=== PATIENT | female | born 1990 | race American Indian/Alaskan Native ===

== ENCOUNTER 2018-12-18 15:10 | Emergency (ER) | payer OTHER ==
[2018-12-18 14:08] LABS: Hematocrit 34.4 % (30.3-42.9); Hemoglobin 11.6 gm/dl (10.1-14.3); Mean Corpuscular HGB Conc 34 % (30-34); Mean Corpuscular Volume 86 fl (79-97); Platelet Count 388 K/mm3 (140-440)
[2018-12-18 14:08] LABS: Bilirubin,Urine NEG (Negative); Blood,Urine NEG (Negative); Color,Urine Straw (Yellow); Mucus,Urine FEW /HPF; Protein,Urine <15 mg/dL mg/dL (Negative); RBC,Urine < 1.0 /HPF (0.0-6.0); Urobilinogen,Urine < 2.0 mg/dL (<2.0)
[2018-12-18 14:27] LABS: Alanine Aminotransferase 13 units/L (7-56); Uric Acid 5.1 mg/dL (3.5-7.6)
[2018-12-18 16:55] LABS: INR 0.86 (0.87-1.13)
[2018-12-18 16:56] LABS: Partial Thromboplastin Time 25.6 Sec. (24.2-36.6)
[2018-12-18 17:06] LABS: Alanine Aminotransferase 13 units/L (7-56); Albumin 3.3 g/dL (3.9-5)
[2018-12-18 17:07] LABS: Bilirubin,Direct < 0.2 mg/dL (0-0.2)
--- NOTE | 2018-12-18 17:08 | Emergency Department Report ---
<KATHERINE HUBER - Last Filed: 12/18/18 19:40> ED General Adult HPI - General Chief complaint: Dyspnea/Respdistress Time Seen by Provider: 12/18/18 17:06 Source: patient Mode of arrival: Ambulatory Limitations: No Limitations - History of Present Illness Initial comments: 28-year-old female 30 weeks who states that she has had no problems with this thus far. She has already been to L&D and cleared from the obstetrical point of view. She is referred to the emergency department for evaluation of episodes of shortness of breath. The patient explains that she has had perhaps 3 episodes of shortness of breath one earlier today which was of one minute duration. She states that she had a first episode on Saturday. These episodes are nonexertional and not associated with cough or chest pain. The patient tells me she thinks that the reason why she is having these episodes is because she is "so heavy" from her . She was at work today. She works at "[employer] She does not do heavy exertion. He does not report any leg swelling or calf tenderness. She has no prior history of PE or DVT. She doesn't report any history of hypertension in or otherwise. -: Gradual Associated Symptoms: denies other symptoms - Related Data Previous Rx's Medication Instructions Recorded Last Taken Type Acetaminophen/Codeine [Tylenol #3] 1 tab PO Q6H PRN #20 tab 05/29/16 Unknown Rx Amoxicillin/K Clav Tab [Augmentin 1 tab PO Q12HR #20 tab 05/29/16 Unknown Rx 875 mg] Ibuprofen [Motrin] 600 mg PO Q8H PRN #40 tablet 05/29/16 Unknown Rx Loratadine [Claritin] 10 mg PO DAILY #30 tablet 05/29/16 Unknown Rx Prednisone [predniSONE 10 mg 10 mg PO .TAPER #1 tab.ds.pk 05/29/16 Unknown Rx (6-Day Pack, 21 Tabs)] Allergies Allergy/AdvReac Type Severity Reaction Status Date / Time No Known Allergies Allergy Verified 05/28/16 22:01 ED Review of Systems Constitutional: denies: chills, fever Eyes: denies: eye pain, eye discharge, vision change ENT: denies: ear pain, throat pain Respiratory: see HPI, shortness of breath. denies: cough, wheezing Cardiovascular: denies: chest pain, palpitations Endocrine: no symptoms reported Gastrointestinal: denies: abdominal pain, nausea, diarrhea Genitourinary: denies: urgency, dysuria, discharge Musculoskeletal: denies: back pain, joint swelling, arthralgia Skin: denies: rash, lesions Neurological: denies: headache, weakness, paresthesias Psychiatric: denies: anxiety, depression Hematological/Lymphatic: denies: easy bleeding, easy bruising ED Past Medical Hx - Past Medical History Previous Medical History?: No Hx Hypertension: No Hx Diabetes: No Hx Deep Vein Thrombosis: No Hx Renal Disease: No Hx Sickle Cell Disease: No Hx Seizures: No Hx Asthma: No Hx HIV: No - Surgical History Past Surgical History?: No - Social History Smoking Status: Never Smoker Substance Use Type: None - Medications Home Medications: Home Medications Medication Instructions Recorded Confirmed Last Taken Type Acetaminophen/Codeine [Tylenol #3] 1 tab PO Q6H PRN #20 tab 05/29/16 Unknown Rx Amoxicillin/K Clav Tab [Augmentin 1 tab PO Q12HR #20 tab 05/29/16 Unknown Rx 875 mg] Ibuprofen [Motrin] 600 mg PO Q8H PRN #40 tablet 05/29/16 Unknown Rx Loratadine [Claritin] 10 mg PO DAILY #30 tablet 05/29/16 Unknown Rx Prednisone [predniSONE 10 mg 10 mg PO .TAPER #1 tab.ds.pk 05/29/16 Unknown Rx (6-Day Pack, 21 Tabs)] ED Physical Exam - General Limitations: No Limitations General appearance: alert, in no apparent distress - Head Head exam: Present: atraumatic, normocephalic - Eye Eye exam: Present: normal appearance. Absent: scleral icterus - ENT ENT exam: Present: mucous membranes moist - Neck Neck exam: Present: normal inspection - Respiratory Respiratory exam: Present: normal lung sounds bilaterally. Absent: respiratory distress - Cardiovascular Cardiovascular Exam: Present: regular rate, normal rhythm. Absent: systolic murmur, diastolic murmur, rubs, gallop - GI/Abdominal GI/Abdominal exam: Present: soft, normal bowel sounds, other (uterus consistent with dates). Absent: tenderness, guarding, rebound, rigid - Extremities Exam Extremities exam: Present: normal inspection, normal capillary refill. Absent: pedal edema, joint swelling, calf tenderness - Back Exam Back exam: Present: normal inspection - Neurological Exam Neurological exam: Present: alert, oriented X3, CN II-XII intact. Absent: motor sensory deficit - Psychiatric Psychiatric exam: Present: normal affect, normal mood - Skin Skin exam: Present: warm, dry, intact, normal color. Absent: rash ED Course - Reevaluation(s) Reevaluation #1: Patient was noted to be mildly tachycardic. Her pulse oximetry was from 99-100% consistently. She had no shortness of breath in the emergency department. However, her d-dimer was approximately 1100. Therefore CTA to rule out pulmonary embolism was necessitated. This is pending. 12/18/18 19:34 ED Medical Decision Making - Lab Data Result diagrams: 12/18/18 13:40 12/18/18 15:37 Laboratory Results - last 24 hr 12/18/18 12/18/18 12/18/18 11:52 13:40 13:40 WBC 12.3 H RBC 4.00 Hgb 11.6 Hct 34.4 MCV 86 MCH 29 MCHC 34 RDW 16.0 H Plt Count 388 PT INR APTT Creatinine 0.6 L Estimated GFR > 60 Uric Acid 5.1 Magnesium Total Bilirubin Direct Bilirubin Indirect Bilirubin AST 14 ALT 13 Alkaline Phosphatase Lactate Dehydrogenase 199 H NT-Pro-B Natriuret Pep Total Protein Albumin Albumin/Globulin Ratio Urine Color Straw Urine Turbidity Clear Urine pH 6.0 Ur Specific [place] 1.004 Urine Protein <15 mg/dl Urine Glucose (UA) Neg Urine Ketones Neg Urine Blood Neg Urine Nitrite Neg Urine Bilirubin Neg Urine Urobilinogen < 2.0 Ur Leukocyte Esterase Neg Urine WBC (Auto) 1.0 Urine RBC (Auto) < 1.0 U Epithel Cells (Auto) 1.0 Urine Mucus Few 12/18/18 12/18/18 15:37 15:37 WBC RBC Hgb Hct MCV MCH MCHC RDW Plt Count PT 12.1 L INR 0.86 L APTT 25.6 Creatinine Estimated GFR Uric Acid Magnesium 1.60 L Total Bilirubin 0.20 Direct Bilirubin < 0.2 Indirect Bilirubin 0.0 AST 15 ALT 13 Alkaline Phosphatase 85 Lactate Dehydrogenase NT-Pro-B Natriuret Pep 23.89 Total Protein 6.5 Albumin 3.3 L Albumin/Globulin Ratio 1.0 Urine Color Urine Turbidity Urine pH Ur Specific Atlantic Urine Protein Urine Glucose (UA) Urine Ketones Urine Blood Urine Nitrite Urine Bilirubin Urine Urobilinogen Ur Leukocyte Esterase Urine WBC (Auto) Urine RBC (Auto) U Epithel Cells (Auto) Urine Mucus Laboratory Results - last 24 hr 12/18/18 12/18/18 12/18/18 11:52 13:40 13:40 WBC 12.3 H RBC 4.00 Hgb 11.6 Hct 34.4 MCV 86 MCH 29 MCHC 34 RDW 16.0 H Plt Count 388 PT INR APTT D-Dimer Sodium Potassium Chloride Carbon Dioxide Anion Gap BUN Creatinine 0.6 L Estimated GFR > 60 BUN/Creatinine Ratio Glucose Uric Acid 5.1 Calcium Magnesium Total Bilirubin Direct Bilirubin Indirect Bilirubin AST 14 ALT 13 Alkaline Phosphatase Lactate Dehydrogenase 199 H NT-Pro-B Natriuret Pep Total Protein Albumin Albumin/Globulin Ratio Urine Color Straw Urine Turbidity Clear Urine pH 6.0 Ur Specific Atlantic 1.004 Urine Protein <15 mg/dl Urine Glucose (UA) Neg Urine Ketones Neg Urine Blood Neg Urine Nitrite Neg Urine Bilirubin Neg Urine Urobilinogen < 2.0 Ur Leukocyte Esterase Neg Urine WBC (Auto) 1.0 Urine RBC (Auto) < 1.0 U Epithel Cells (Auto) 1.0 Urine Bacteria (Auto) Urine Mucus Few Urine Yeast (Budding) 12/18/18 12/18/18 12/18/18 15:37 15:37 15:37 WBC RBC Hgb Hct MCV MCH MCHC RDW Plt Count PT 12.1 L INR 0.86 L APTT 25.6 D-Dimer Sodium 137 Potassium 3.9 Chloride 60.0 L Carbon Dioxide 19 L Anion Gap 62 BUN 5 L Creatinine 0.5 L Estimated GFR > 60 BUN/Creatinine Ratio 10 Glucose 87 Uric Acid Calcium 9.9 Magnesium 1.60 L Total Bilirubin 0.20 Direct Bilirubin < 0.2 Indirect Bilirubin 0.0 AST 15 ALT 13 Alkaline Phosphatase 85 Lactate Dehydrogenase NT-Pro-B Natriuret Pep 23.89 Total Protein 6.5 Albumin 3.3 L Albumin/Globulin Ratio 1.0 Urine Color Urine Turbidity Urine pH Ur Specific Atlantic Urine Protein Urine Glucose (UA) Urine Ketones Urine Blood Urine Nitrite Urine Bilirubin Urine Urobilinogen Ur Leukocyte Esterase Urine WBC (Auto) Urine RBC (Auto) U Epithel Cells (Auto) Urine Bacteria (Auto) Urine Mucus Urine Yeast (Budding) 12/18/18 12/18/18 17:11 17:40 WBC RBC Hgb Hct MCV MCH MCHC RDW Plt Count PT INR APTT D-Dimer 1354 H Sodium Potassium Chloride Carbon Dioxide Anion Gap BUN Creatinine Estimated GFR BUN/Creatinine Ratio Glucose Uric Acid Calcium Magnesium Total Bilirubin Direct Bilirubin Indirect Bilirubin AST ALT Alkaline Phosphatase Lactate Dehydrogenase NT-Pro-B Natriuret Pep Total Protein Albumin Albumin/Globulin Ratio Urine Color Yellow Urine Turbidity Clear Urine pH 6.0 Ur Specific Atlantic 1.004 Urine Protein <15 mg/dl Urine Glucose (UA) Neg Urine Ketones Neg Urine Blood Neg Urine Nitrite Neg Urine Bilirubin Neg Urine Urobilinogen < 2.0 Ur Leukocyte Esterase Neg Urine WBC (Auto) 1.0 Urine RBC (Auto) 1.0 U Epithel Cells (Auto) 3.0 Urine Bacteria (Auto) 1+ Urine Mucus Urine Yeast (Budding) Few Discussed with lab. They state that the chloride is initially 105 and they will correct. - EKG Data -: EKG Interpreted by Id EKG shows normal: sinus rhythm, axis, intervals, QRS complexes, ST-T waves Rate: normal - EKG Data Interpretation: normal EKG ED Disposition Clinical Impression: Dyspnea Qualifiers: Dyspnea type: shortness of breath Qualified Code(s): R06.02 - Shortness of breath Disposition: DC-01 TO HOME OR SELFCARE Condition: Stable Instructions: Dyspnea (ED) Additional Instructions: return if worse Referrals: VITO RAMOS MD [Primary Care Provider] - 3-5 Days <MICHAEL MILLIGAN - Last Filed: 12/18/18 23:15> ED Review of Systems ROS: Stated complaint: Other details as noted in HPI ED Course Vital Signs 12/18/18 12/18/18 12/18/18 13:53 13:58 14:03 Temperature Pulse Rate 105 H 100 H 93 H Respiratory Rate Blood Pressure 117/68 Blood Pressure [Left] O2 Sat by Pulse 100 100 100 Oximetry 12/18/18 12/18/18 12/18/18 14:08 14:13 14:18 Temperature Pulse Rate 99 H 103 H 99 H Respiratory Rate Blood Pressure 117/80 Blood Pressure [Left] O2 Sat by Pulse 99 100 100 Oximetry 12/18/18 12/18/18 12/18/18 14:23 14:28 14:33 Temperature Pulse Rate 96 H 98 H 100 H Respiratory Rate Blood Pressure 119/62 Blood Pressure [Left] O2 Sat by Pulse 100 99 100 Oximetry 12/18/18 12/18/18 12/18/18 14:38 14:43 14:49 Temperature Pulse Rate 95 H 97 H 103 H Respiratory Rate Blood Pressure Blood Pressure [Left] O2 Sat by Pulse 100 100 100 Oximetry 12/18/18 12/18/18 12/18/18 15:23 16:37 19:25 Temperature 98.4 F 98.6 F 97.9 F Pulse Rate 91 H 99 H 110 H Respiratory 20 19 13 Rate Blood Pressure 126/77 Blood Pressure 120/78 126/79 [Left] O2 Sat by Pulse 100 98 100 Oximetry 12/18/18 12/18/18 21:56 21:57 Temperature Pulse Rate 98 H Respiratory 22 Rate Blood Pressure Blood Pressure 128/76 [Left] O2 Sat by Pulse 100 Oximetry ED Medical Decision Making - Lab Data Result diagrams: 12/18/18 13:40 12/18/18 15:37 - Radiology Data Radiology results: [place] [address] Cat Scan Report Signed Patient: HILDA GRAY MR#: [id number] : 1990 Acct:[id number] Age/Sex: 28 / F ADM Date: 12/18/18 Loc: ED Attending Dr: Ordering Physician: KATHERINE HUBER MD Date of Service: 12/18/18 Procedure(s): CT angio chest Accession Number(s): [id number] cc: KATHERINE HUBER MD FINAL REPORT PROCEDURE: CT ANGIO CHEST TECHNIQUE: Computerized tomographic angiography of the chest was performed after the IV injection of iodinated nonionic contrast including image processing. The image data was postprocessed using 2-dimensional multiplanar reformatted (MPR) and 3-dimensional (MIP and/or volume rendered) techniques. HISTORY: KYMBERLY elevated dimer COMPARISON: No prior studies are available for comparison. FINDINGS: Heart and pericardium: Normal. Thoracic aorta: Normal. Pulmonary vasculature: There is suboptimal enhancement. No filling defects seen. Lymph nodes: No enlarged thoracic lymph nodes. Lungs: Normal. Pleural space: No effusion, thickening, or pneumothorax. Musculoskeletal structures: No significant abnormality. Upper abdominal structures: No significant abnormality. IMPRESSION: No acute cardiopulmonary disease. No embolism seen. Suboptimal enhancement of the pulmonary arteries. Transcribed By: BRP Dictated By: DANITZA LOBATO MD Electronically Authenticated By: DANITZA LOBATO MD Signed Date/Time: 12/18/182305 DD/ 03 TD/TT: 12/18/182303 Critical care attestation.: If time is entered above; I have spent that time in minutes in the direct care of this critically ill patient, excluding procedure time. ED Disposition Is pt being admited?: No Does the pt Need Aspirin: No Time of Disposition: 23:14
[2018-12-18 17:23] LABS: Hemolysis Index 0
[2018-12-18 18:02] LABS: Calcium 9.9 mg/dL (8.4-10.2)
[2018-12-18 18:05] LABS: BUN/Creatinine Ratio 10; Blood Urea Nitrogen 5 mg/dL (7-17)
[2018-12-18 18:18] LABS: Bacteria,Urine 1+ /HPF (Negative); Bilirubin,Urine NEG (Negative); Blood,Urine NEG (Negative); Color,Urine Yellow (Yellow); Protein,Urine <15 mg/dL mg/dL (Negative); Urobilinogen,Urine < 2.0 mg/dL (<2.0)
--- NOTE | 2018-12-18 23:06 | Cat Scan Report ---
FINAL REPORT PROCEDURE: CT ANGIO CHEST TECHNIQUE: Computerized tomographic angiography of the chest was performed after the IV injection of iodinated nonionic contrast including image processing. The image data was postprocessed using 2-dim ensional multiplanar reformatted (MPR) and 3-dimensional (MIP and/or volume rendered) techniques. HISTORY: KYMBERLY elevated dimer COMPARISON: No prior studies are available for comparison. FINDINGS: Heart and pericardium: Normal. Thoracic aorta: Normal. Pulmonary vasculature: There is suboptimal enhancement. No filling defects seen. Lymph nodes: No enlarged thoracic lymph nodes. Lungs: Normal. Pleural space: No effusion, thickening, or pneumothorax. Musculoskeletal structures: No significant abnormality. Upper abdominal structures: No significant abnormality. IMPRESSION: No acute cardiopulmonary disease. No embolism seen. Suboptimal enhancement of the pulmonary arteries.
[2018-12-19 00:15] VITALS: BP 128/69
== END 2018-12-18 23:30 | disposition home or self-care (01) ==
LOC: ED 15:10 → TRG 15:59 → ED 15:59 → TRG 15:59 → EDSTATUS 16:05 → ED 23:30
DX: O26.893 Other specified pregnancy related conditions, third trimester (principal); O99.513 Diseases of the respiratory system complicating pregnancy, third trimester; Z79.899 Other long term (current) drug therapy; Z3A.30 30 weeks gestation of pregnancy
CPT/HCPCS: 36415; 71275; 80048; 80076; 81001; 82565; 83615; 83735; 83880; 84450; 84460; 84550; 85027; 85379; 85610; 85730; 93005; 93010; 99284; Q9967

== ENCOUNTER 2019-01-21 11:03 | Outpatient (CLI) | payer OTHER ==
[2019-01-21] MEDS ORDERED: LACTATED RINGERS 500 ML IV ONE (11:57)
[2019-01-21 12:34] VITALS: BP 138/82
--- NOTE | 2019-01-21 17:01 | Ultrasound Report ---
PROCEDURE: Limited obstetrical ultrasound. TECHNIQUE: Real-time limited sonographic examination was performed for evaluation of each fetus with image documentation (1 or more fetuses). HISTORY: Oligohydramnios COMPARISONS: None . FINDINGS: There is a single intrauterine fetus in cephalic presentation. Cardiac activity is documented at 139 bpm. The amniotic fluid volume appears normal. The amniotic fluid index measures 8.0 cm. IMPRESSION: Amniotic fluid index equals 8.0 cm. This document is electronically signed by Cal Gar MD., January 21 2019 04:58:58 PM ET
--- NOTE | 2019-01-21 17:02 | Ultrasound Report ---
PROCEDURE: Ultrasound biophysical profile without nonstress test. TECHNIQUE: Sonographic evaluation for breathing, movement, tone, and amniotic flui d volume was performed. HISTORY: Rule out Oligohydramnios COMPARISONS: None . FINDINGS: Amniotic fluid volume 2. breathin. movement: 2. tone: 2. Score: 8 of 8. IMPRESSION: Normal biophysical profile. This document is electronically signed by Cal Gar MD., January 21 2019 05:00:45 PM ET
== END 2019-01-21 18:45 | disposition home or self-care (01) ==
LOC: TRG 11:03
PROVIDERS: ATTEND Obstetrics & Gynecology
DX: O41.03X0 Oligohydramnios, third trimester, not applicable or unspecified (principal); O47.03 False labor before 37 completed weeks of gestation, third trimester; Z3A.34 34 weeks gestation of pregnancy
CPT/HCPCS: 59025; 76815; 76819; J7120; 96360; 96361

== ENCOUNTER 2019-01-23 12:12 | Inpatient (IN) | payer OTHER ==
[2019-01-23] MEDS ORDERED: CELESTONE SOLUSPAN IM SCH (13:00)
[2019-01-23 13:09] LABS: Bacteria,Urine 1+ /HPF (Negative); Bilirubin,Urine NEG (Negative); Blood,Urine NEG (Negative); Color,Urine Straw (Yellow); Urobilinogen,Urine < 2.0 mg/dL (<2.0)
[2019-01-23 13:24] LABS: Hematocrit 33.3 % (30.3-42.9); Hemoglobin 11.3 gm/dl (10.1-14.3); Mean Corpuscular HGB Conc 34 % (30-34); Mean Corpuscular Volume 86 fl (79-97); Platelet Count 361 K/mm3 (140-440); Red Blood Count 3.87 M/mm3 (3.65-5.03); Red Cell Distribution Width 17.6 % (13.2-15.2)
[2019-01-23 14:05] LABS: Alanine Aminotransferase 11 units/L (7-56)
[2019-01-23] MEDS ORDERED: ZOFRAN IV PRN (14:14)
[2019-01-23] MEDS ORDERED: TYLENOL PO PRN (14:14)
[2019-01-23] MEDS ORDERED: BENADRYL PO PRN (14:14)
[2019-01-23] MEDS ORDERED: COLACE PO PRN (14:14)
[2019-01-23] MEDS ORDERED: LACTATED RINGERS 1,000 ML ONE (14:16)
[2019-01-23] MEDS: DECADRON IM SCH (16:00)
[2019-01-23] MEDS: LACTATED RINGERS 1,000 ML IV SCH (16:43)
--- NOTE | 2019-01-23 21:02 | Ultrasound Report ---
PROCEDURE: US OB LIMITED HISTORY: history of oligo FINDINGS: Real-time ultrasound of the pelvis was performed by transabdominal technique. Comparison is made to prior examination of January 21. There is a fundal grade 1 placenta. cardiac activity is present at 171 bpm. Fetus lies in cepha lic lie. Amniotic fluid index is 4.4 cm which is low. On the prior examination of January 21, 2005 was 4.9 cm. IMPRESSION: Continued oligohydramnios with FELIPE of 4.4 cm This document is electronically signed by Jacques Mendez MD., January 23 2019 09:00:34 PM ET
[2019-01-23] MEDS ORDERED: MAGNESIUM SULFATE 4GM/100ML 4 GM/100 ML BAG IV ONE (21:29)
[2019-01-23] MEDS ORDERED: MAGNESIUM SULFATE 40GM/1000ML 40 GM/1,000 ML BAG IV SCH (22:00)
--- NOTE | 2019-01-23 22:47 | History and Physical Report ---
History of Present Illness Date of examination: 01/23/19 Date of admission: 01/23/19 12:12 Chief complaint: 28 year old sent from office for IM steroids due to severe preeclampsia. History of present illness: 28 year old sent from office for IM steroids due to severe preeclampsia. LMP 05/22/18. EDC 02/26/19. Patient has been receiving care at [facility] and comanaged with [facility]. records are available. significant for the following: recently elevated blood pressure, edema, and proteinuria; obesity; sickle cell trait (FOB negative); H/O syphilis (treated in 2013); rubella nonimmune; pap LSIL, + HPV; anemia (supplemented with iron); oligohydramnios. labs are as follows: O+, antibody screen negative, pap LSIL, + HPV, rubella nonimmune, HIV nonreactive, RPR negative, hepatitis B surface antigen negative, hemoglobin electrophoresis As, CT/GC negative, trichomonas negative, diabetes screen 129, gbs unknown (pending). Past History Past Medical History: other (obesity) Past Surgical History: no surgical history [facility] History: abnormal PAP smear. denies: chlamydia, fibroids, gonorrhea, hepatitis B, hepatitis C, herpes, HIV, trichomonas Family/Genetic History: none Social history: , lives with family, smoking, alcohol abuse. denies: prescription drug abuse - Obstetrical History Expected Date of Delivery: 02/26/19 Actual Gestation: 35 Week(s) 1 Day(s) : 2 Para: 1 Hx # Term Pregnancies: 1 Number of Pregnancies: 1 Spontaneous Abortions: 0 Induced : 0 Number of Living Children: 1 Medications and Allergies Allergies Allergy/AdvReac Type Severity Reaction Status Date / Time No Known Allergies Allergy Verified 05/28/16 22:01 Home Medications Medication Instructions Recorded Confirmed Last Taken Type Acetaminophen/Codeine [Tylenol #3] 1 tab PO Q6H PRN #20 tab 05/29/16 Unknown Rx Amoxicillin/K Clav Tab [Augmentin 1 tab PO Q12HR #20 tab 05/29/16 Unknown Rx 875 mg] Ibuprofen [Motrin] 600 mg PO Q8H PRN #40 tablet 05/29/16 Unknown Rx Loratadine [Claritin] 10 mg PO DAILY #30 tablet 05/29/16 Unknown Rx Prednisone [predniSONE 10 mg 10 mg PO .TAPER #1 tab.ds.pk 05/29/16 Unknown Rx (6-Day Pack, 21 Tabs)] Active Meds: Active Medications Acetaminophen (Tylenol) 650 mg PO Q4H PRN PRN Reason: Pain MILD(1-3)/Fever >100.5/DURAN Dexamethasone (Decadron) 6 mg IM Q12H DONALDO Stop: 01/25/19 03:01 Last Admin: 01/23/19 16:00 Dose: 6 mg Documented by: Diphenhydramine HCl (Benadryl) 25 mg PO Q6H PRN PRN Reason: Itching Docusate Sodium (Colace) 100 mg PO Q12H PRN PRN Reason: Constipation Lactated Ringer's (Lactated Ringers) 1,000 mls @ 125 mls/hr IV DIRECT DONALDO Last Admin: 01/23/19 16:43 Dose: 125 mls/hr Documented by: Magnesium Sulfate (Magnesium Sulfate 40gm/1000ml) 40 gm in 1,000 mls @ 50 mls/hr IV DIRECT DONALDO Labetalol HCl (Normodyne) 200 mg PO BID DONALDO Multivitamins/Iron/Calcium ( Vitamin) 1 each PO QDAY DONALDO Ondansetron HCl (Zofran) 4 mg IV Q6H PRN PRN Reason: Nausea And Vomiting Review of Systems All systems: negative (headaches and swelling) - Vital Signs Vital signs: Vital Signs Pulse BP 85 140/80 01/23/19 12:40 01/23/19 12:40 Temp Pulse Resp BP Pulse Ox 97.7 F 97 H 18 144/75 01/23/19 13:09 01/23/19 21:25 01/23/19 13:09 01/23/19 21:25 - Physical Exam Cardiovascular: Regular rate, Normal S1, Normal S2 Lungs: Positive: Clear to auscultation Abdomen: Positive: normal appearance, soft, normal bowel sounds. Negative: distention, tenderness, guarding Genitourinary (Female): Positive: normal external genitalia. Negative: perineal/vulvar lesions Results Result Diagrams: 01/23/19 13:01 01/23/19 13:01 Abnormal lab results 01/23/19 01/23/19 Range/Units 13: 13: RDW 17.6 H (13.2-15.2) % Creatinine 0.5 L (0.7-1.2) mg/dL All other labs normal. Assessment and Plan A: at 35 1/7 weeks gestation. GB unknown. Preeclampsia with severe features. P: Admit. Continuous EFM. IM Dexamethasone. Labetalol; Magnesium sulfate. Consulted with Dr. Pan re: this patient.
[2019-01-24] MEDS: DECADRON IM SCH ×3 (04:01→16:00)
[2019-01-24] MEDS: NORMODYNE PO SCH ×2 (10:23→21:57)
--- NOTE | 2019-01-24 10:26 | Progress Note ---
Assessment and Plan A: at 35 2/7 weeks gestation. Preeclampsia. P: Continue magnesium sulfate. Continue Labetalol. Patient to complete course of steroids for FLM. Plan IOL per MD after steroids completed. Subjective - Subjective Date of service: 01/24/19 Principal diagnosis: at 35 2/7 weeks; preeclampsia Interval history: 28 year old at 35 2/7 weeks here for preeclampsia with severe features. Patient is receiving IM Dexamethasone. Patient denies headache, chest pain, cough, shortness of breath, or visual disturbance. Patient complains of swelling. Patient denies contractions, abdominal pain, LOF, or VB. Patient reports: movement normal, no loss of fluid, no vaginal bleeding Objective - Vital Signs Vital Signs: Vital Signs - 12hr 01/23/19 01/23/19 01/24/19 22:27 23:48 00:03 Temperature Pulse Rate 109 H 102 H 108 H Respiratory Rate Blood Pressure 141/79 165/75 135/65 01/24/19 01/24/19 01/24/19 00:18 01:25 01:56 Temperature Pulse Rate 112 H 112 H 113 H Respiratory Rate Blood Pressure 142/75 133/75 126/69 01/24/19 01/24/19 01/24/19 02:26 02:56 03:26 Temperature Pulse Rate 105 H 110 H 103 H Respiratory Rate Blood Pressure 135/95 132/70 133/61 01/24/19 01/24/19 01/24/19 03:33 03:56 06:34 Temperature 97.7 F Pulse Rate 74 105 H 100 H Respiratory Rate Blood Pressure 131/73 144/83 01/24/19 01/24/19 01/24/19 06:58 07:30 08:22 Temperature 98.0 F Pulse Rate 99 H 104 H Respiratory 18 Rate Blood Pressure 138/80 138/88 01/24/19 09:22 Temperature Pulse Rate 108 H Respiratory Rate Blood Pressure 135/78 - Exam Abdomen: Present: normal appearance, soft. Absent: distention, tenderness, guarding, rigidity Uterus: Present: normal, fundal height above umbilicus FHR: category 1 Uterine Contraction Pattern: Absent Extremities: normal, edema - Labs Labs: Abnormal Labs 01/23/19 01/23/19 01/24/19 13:01 13:01 04:17 RDW 17.6 H Creatinine 0.5 L Magnesium 4.10 H Laboratory Results - last 24 hr 01/23/19 01/23/19 01/23/19 12:59 13:01 13:01 WBC 10.8 RBC 3.87 Hgb 11.3 Hct 33.3 MCV 86 MCH 29 MCHC 34 RDW 17.6 H Plt Count 361 Creatinine 0.5 L Estimated GFR > 60 Uric Acid 7.0 Magnesium AST 16 ALT 11 Urine Color Urine Turbidity Urine pH Ur Specific Post Urine Protein Urine Glucose (UA) Urine Ketones Urine Blood Urine Nitrite Urine Bilirubin Urine Urobilinogen Ur Leukocyte Esterase Urine WBC (Auto) Urine RBC (Auto) U Epithel Cells (Auto) Urine Bacteria (Auto) Blood Type O POSITIVE Antibody Screen Negative 01/23/19 01/24/19 Unknown 04:17 WBC RBC Hgb Hct MCV MCH MCHC RDW Plt Count Creatinine Estimated GFR Uric Acid Magnesium 4.10 H AST ALT Urine Color Straw Urine Turbidity Slightly-cloudy Urine pH 6.0 Ur Specific Post 1.003 Urine Protein 100 mg/dl Urine Glucose (UA) Neg Urine Ketones Neg Urine Blood Neg Urine Nitrite Neg Urine Bilirubin Neg Urine Urobilinogen < 2.0 Ur Leukocyte Esterase Neg Urine WBC (Auto) 1.0 Urine RBC (Auto) 1.0 U Epithel Cells (Auto) 2.0 Urine Bacteria (Auto) 1+ Blood Type Antibody Screen
--- NOTE | 2019-01-24 16:09 | Consultation ---
History of Present Illness Consult date: 01/24/19 Requesting physician: ANNELIESE PAN Reason for consult: gestational hypertension Past History Past Medical History: no pertinent history, other (obesity) Past Surgical History: no surgical history [employer] History: abnormal PAP smear. denies: chlamydia, fibroids, gonorrhea, hepatitis B, hepatitis C, herpes, HIV, trichomonas Family/Genetic History: none Social history: no significant social history - Obstetrical History : 2 Para: 1 Hx # Term Pregnancies: 1 Medications and Allergies Allergies Allergy/AdvReac Type Severity Reaction Status Date / Time No Known Allergies Allergy Verified 05/28/16 22:01 Home Medications Medication Instructions Recorded Confirmed Last Taken Type Acetaminophen/Codeine [Tylenol #3] 1 tab PO Q6H PRN #20 tab 05/29/16 Unknown Rx Amoxicillin/K Clav Tab [Augmentin 1 tab PO Q12HR #20 tab 05/29/16 Unknown Rx 875 mg] Ibuprofen [Motrin] 600 mg PO Q8H PRN #40 tablet 05/29/16 Unknown Rx Loratadine [Claritin] 10 mg PO DAILY #30 tablet 05/29/16 Unknown Rx Prednisone [predniSONE 10 mg 10 mg PO .TAPER #1 tab.ds.pk 05/29/16 Unknown Rx (6-Day Pack, 21 Tabs)] Active Meds: Active Medications Acetaminophen (Tylenol) 650 mg PO Q4H PRN PRN Reason: Pain MILD(1-3)/Fever >100.5/DURAN Dexamethasone (Decadron) 6 mg IM Q12H DONALDO Stop: 01/25/19 03:01 Last Admin: 01/24/19 04:03 Dose: Not Given Documented by: Diphenhydramine HCl (Benadryl) 25 mg PO Q6H PRN PRN Reason: Itching Docusate Sodium (Colace) 100 mg PO Q12H PRN PRN Reason: Constipation Lactated Ringer's (Lactated Ringers) 1,000 mls @ 125 mls/hr IV DIRECT DONALDO Last Admin: 01/23/19 16:43 Dose: 125 mls/hr Documented by: Magnesium Sulfate (Magnesium Sulfate 40gm/1000ml) 40 gm in 1,000 mls @ 50 mls/hr IV DIRECT DONALDO Labetalol HCl (Normodyne) 200 mg PO BID DONALDO Last Admin: 01/24/19 10:23 Dose: 200 mg Documented by: Multivitamins/Iron/Calcium ( Vitamin) 1 each PO QDAY DONALDO Ondansetron HCl (Zofran) 4 mg IV Q6H PRN PRN Reason: Nausea And Vomiting Review of Systems Constitutional: no fever, no chills, no sweats Eyes: normal appearance Cardiovascular: no chest pain, no orthopnea, no palpitations Respiratory: no cough, no shortness of breath Gastrointestinal: no abdominal pain, no nausea, no vomiting - Vital Signs Vital signs: Vital Signs Pulse BP 85 140/80 01/23/19 12:40 01/23/19 12:40 Temp Pulse Resp BP Pulse Ox 98.3 F 16 L 20 130/74 01/24/19 15:22 01/24/19 15:22 01/24/19 15:22 01/24/19 15:22 - Physical Exam Cardiovascular: Regular rate Lungs: Positive: Normal air movement Abdomen: Positive: normal appearance, soft, distention, tenderness Uterus: Positive: normal size Extremities: Positive: normal - Obstetrical FHR: category 1 Results Result Diagrams: 01/23/19 13:01 01/23/19 13:01 Abnormal lab results 01/24/19 01/24/19 Range/Units 04:17 10:30 Magnesium 4.10 H 5.10 H (1.7-2.3) mg/dL All other labs normal. Assessment and Plan patient is @ 35.2 weeks with mild versus severe PreE/GHTN and oligohydrmanios - patient getting steroid course now - for oligo and HTN Dx would proceed with delivery - if cont severe range BP would start Mag - Cont monitoring now - proceed with IOL - start PO HTN meds as needed or increase Labetalol - I spoke with Dr Pan about the recommendation for delivery
[2019-01-25] MEDS: LACTATED RINGERS 1,000 ML IV SCH (03:09)
[2019-01-25] MEDS: DECADRON IM SCH (04:06)
[2019-01-25] MEDS ORDERED: CERVIDIL VG ONE (07:04)
--- NOTE | 2019-01-25 07:07 | Event Note ---
Date: 01/25/19 Patient has received steroids for FLM. Will start induction of labor. Cervidil orders put in. Discussed cervical ripening and induction of labor with patient and pateint consented to cervical ripening and induction of labor.
--- NOTE | 2019-01-25 07:28 | Progress Note ---
Assessment and Plan A: at 35 3/7 weeks gestation. Preeclampsia with severe features. GBS unknown status. P: Continue magnesium sulfate. Continue po Labetalol. Start induction of labor. GBS prophylaxis. Subjective - Subjective Date of service: 01/25/19 Principal diagnosis: at 35 3/7 weeks; preeclampsia Interval history: 28 year old at 35 3/7 weeks here for preeclampsia with severe features. Patient has received steroids for FLM. Orders have been put in for Cervidil for cervical ripening. Patient denies headache, chest pain, cough, shortness of breath, or visual disturbance. Patient complains of swelling. Patient denies contractions, abdominal pain, LOF, or VB. Patient reports: movement normal, no loss of fluid, no vaginal bleeding Objective - Vital Signs Vital Signs: Vital Signs - 12hr 01/24/19 01/24/19 01/24/19 19:22 19:49 19:54 Temperature Pulse Rate 100 H 102 H 106 H Respiratory Rate Blood Pressure 140/91 Blood Pressure [Right] O2 Sat by Pulse 99 99 Oximetry 01/24/19 01/24/19 01/24/19 19:59 20:04 20:05 Temperature 97.4 F L Pulse Rate 103 H 103 H 104 H Respiratory 16 Rate Blood Pressure Blood Pressure 140/80 [Right] O2 Sat by Pulse 99 99 99 Oximetry 01/24/19 01/24/19 01/24/19 20:06 20:09 20:14 Temperature Pulse Rate 100 H 99 H 107 H Respiratory Rate Blood Pressure 140/80 Blood Pressure [Right] O2 Sat by Pulse 99 98 Oximetry 01/24/19 01/24/19 01/24/19 20:19 20:22 20:24 Temperature Pulse Rate 97 H 100 H 103 H Respiratory Rate Blood Pressure 163/85 Blood Pressure [Right] O2 Sat by Pulse 97 100 Oximetry 01/24/19 01/24/19 01/24/19 20:29 20:34 20:39 Temperature Pulse Rate 110 H 109 H 102 H Respiratory Rate Blood Pressure Blood Pressure [Right] O2 Sat by Pulse 97 99 98 Oximetry 01/24/19 01/24/19 01/24/19 20:44 20:49 20:54 Temperature Pulse Rate 106 H 101 H 103 H Respiratory Rate Blood Pressure 130/78 Blood Pressure [Right] O2 Sat by Pulse 98 95 99 Oximetry 0301/24/19 01/24/19 20:59 21:04 21:09 Temperature Pulse Rate 99 H 103 H 106 H Respiratory Rate Blood Pressure Blood Pressure [Right] O2 Sat by Pulse 99 98 99 Oximetry 01/24/19 01/24/19 01/24/19 21:14 21:19 21:24 Temperature Pulse Rate 99 H 102 H 103 H Respiratory Rate Blood Pressure 138/76 Blood Pressure [Right] O2 Sat by Pulse 99 95 99 Oximetry 01/24/19 01/24/19 01/24/19 21:29 21:34 21:39 Temperature Pulse Rate 100 H 108 H 104 H Respiratory Rate Blood Pressure Blood Pressure [Right] O2 Sat by Pulse 98 98 99 Oximetry 01/24/19 01/24/19 01/24/19 21:44 21:49 21:54 Temperature Pulse Rate 104 H 98 H 106 H Respiratory Rate Blood Pressure 142/77 Blood Pressure [Right] O2 Sat by Pulse 99 96 99 Oximetry 01/24/19 01/24/19 01/24/19 21:57 21:58 21:59 Temperature Pulse Rate 104 H 102 H 109 H Respiratory Rate Blood Pressure 144/77 144/77 Blood Pressure [Right] O2 Sat by Pulse 99 Oximetry 01/24/19 01/24/19 01/24/19 22:04 22:09 22:14 Temperature Pulse Rate 109 H 103 H 104 H Respiratory Rate Blood Pressure Blood Pressure [Right] O2 Sat by Pulse 99 98 98 Oximetry 01/24/19 01/24/19 01/24/19 22:19 22:24 22:29 Temperature Pulse Rate 103 H 99 H 101 H Respiratory Rate Blood Pressure 133/76 Blood Pressure [Right] O2 Sat by Pulse 94 96 96 Oximetry 01/24/19 01/24/19 01/24/19 22:34 22:39 22:43 Temperature Pulse Rate 102 H 101 H 105 H Respiratory Rate Blood Pressure Blood Pressure [Right] O2 Sat by Pulse 96 95 94 Oximetry 01/24/19 01/24/19 01/24/19 22:44 22:49 22:54 Temperature Pulse Rate 104 H 105 H 104 H Respiratory Rate Blood Pressure 133/72 Blood Pressure [Right] O2 Sat by Pulse 96 93 95 Oximetry 01/24/19 01/24/19 01/24/19 22:59 23:04 23:09 Temperature Pulse Rate 101 H 102 H 103 H Respiratory Rate Blood Pressure Blood Pressure [Right] O2 Sat by Pulse 97 96 99 Oximetry 01/24/19 01/24/19 01/24/19 23:14 23:19 23:24 Temperature Pulse Rate 99 H 101 H 100 H Respiratory Rate Blood Pressure 130/74 Blood Pressure [Right] O2 Sat by Pulse 98 94 95 Oximetry 01/24/19 01/24/19 01/24/19 23:29 23:34 23:39 Temperature Pulse Rate 98 H 102 H 100 H Respiratory Rate Blood Pressure Blood Pressure [Right] O2 Sat by Pulse 96 95 96 Oximetry 01/24/19 01/24/19 01/24/19 23:44 23:46 23:49 Temperature Pulse Rate 101 H 102 H 104 H Respiratory Rate Blood Pressure 128/68 Blood Pressure [Right] O2 Sat by Pulse 95 94 93 Oximetry 01/24/19 01/24/19 01/24/19 23:51 23:54 23:56 Temperature Pulse Rate 103 H 102 H 103 H Respiratory Rate Blood Pressure Blood Pressure [Right] O2 Sat by Pulse 94 95 94 Oximetry 01/24/19 01/25/19 01/25/19 23:59 00:02 00:04 Temperature Pulse Rate 103 H 104 H 104 H Respiratory Rate Blood Pressure Blood Pressure [Right] O2 Sat by Pulse 95 94 95 Oximetry 01/25/19 01/25/19 01/25/19 00:08 00:09 00:14 Temperature Pulse Rate 103 H 104 H 104 H Respiratory Rate Blood Pressure Blood Pressure [Right] O2 Sat by Pulse 94 95 95 Oximetry 01/25/19 01/25/19 01/25/19 00:19 00:24 00:28 Temperature Pulse Rate 105 H 104 H 104 H Respiratory Rate Blood Pressure 126/71 Blood Pressure [Right] O2 Sat by Pulse 95 95 94 Oximetry 01/25/19 01/25/19 01/25/19 00:29 00:33 00:34 Temperature Pulse Rate 94 H 102 H 105 H Respiratory Rate Blood Pressure Blood Pressure [Right] O2 Sat by Pulse 93 93 94 Oximetry 01/25/19 01/25/19 01/25/19 00:39 00:44 00:49 Temperature Pulse Rate 107 H 103 H 104 H Respiratory Rate Blood Pressure 137/74 Blood Pressure [Right] O2 Sat by Pulse 96 96 93 Oximetry 01/25/19 01/25/1919 00:54 00:59 01:04 Temperature Pulse Rate 102 H 102 H 104 H Respiratory Rate Blood Pressure Blood Pressure [Right] O2 Sat by Pulse 96 96 95 Oximetry 01/25/19 01/25/19 01/25/19 01:06 01:09 01:14 Temperature Pulse Rate 106 H 103 H 103 H Respiratory Rate Blood Pressure Blood Pressure [Right] O2 Sat by Pulse 94 96 96 Oximetry 01/25/19 01/25/19 01/25/19 01:19 01:20 01:24 Temperature Pulse Rate 105 H 104 H 100 H Respiratory Rate Blood Pressure 134/65 Blood Pressure [Right] O2 Sat by Pulse 97 94 96 Oximetry 01/25/19 01/25/19 01/25/19 01:29 01:34 03:24 Temperature Pulse Rate 103 H 101 H 95 H Respiratory Rate Blood Pressure 157/91 Blood Pressure [Right] O2 Sat by Pulse 98 98 Oximetry 01/25/19 01/25/19 01/25/19 03:49 04:19 04:49 Temperature Pulse Rate 98 H 93 H 100 H Respiratory Rate Blood Pressure 133/78 134/81 141/82 Blood Pressure [Right] O2 Sat by Pulse Oximetry 01/25/19 01/25/19 01/25/19 05:19 05:49 06:21 Temperature Pulse Rate 103 H 103 H 105 H Respiratory Rate Blood Pressure 135/79 148/83 126/70 Blood Pressure [Right] O2 Sat by Pulse Oximetry 01/25/19 01/25/19 06:50 07:19 Temperature Pulse Rate 101 H 96 H Respiratory Rate Blood Pressure 154/90 155/94 Blood Pressure [Right] O2 Sat by Pulse Oximetry - Exam Abdomen: Present: normal appearance, soft. Absent: distention, tenderness, guarding, rigidity Uterus: Present: normal, fundal height above umbilicus FHR: category 1 Uterine Contraction Monitor Mode: External Uterine Contraction Pattern: Absent Extremities: edema - Labs Labs: Abnormal Labs 01/23/19 01/23/19 01/24/19 13:01 13:01 04:17 RDW 17.6 H Creatinine 0.5 L Magnesium 4.10 H Ur Total Protein 24 Hr Urine Total Protein 01/24/19 01/24/19 01/24/19 10:30 16:36 19:12 RDW Creatinine Magnesium 5.10 H 5.50 H Ur Total Protein 24 Hr 7350.00 H Urine Total Protein 105 H 01/24/19 21:33 RDW Creatinine Magnesium 5.60 H Ur Total Protein 24 Hr Urine Total Protein Laboratory Results - last 24 hr 01/24/19 01/24/19 01/24/19 10:30 16:36 19:12 Magnesium 5.10 H 5.50 H Urine Total Volume 7000 Ur Total Protein 24 Hr 7350.00 H Urine Total Protein 105 H 01/24/19 21:33 Magnesium 5.60 H Urine Total Volume Ur Total Protein 24 Hr Urine Total Protein
[2019-01-25] MEDS ORDERED: AMPICILLIN/NS 2 GM/100 ML 2 GM/100 ML BAG IV ONE ×2 (07:31→23:00)
--- NOTE | 2019-01-25 07:33 | Ultrasound Report ---
PROCEDURE: US OB BPP EA ADD EXAM TECHNIQUE: Real-time limited sonographic examination was performed for evaluation of for each fetus with image documentation (1 or more fetuses). HISTORY: well being COMPARISONS: None . FINDINGS: biophysical profile: breathin. movements: 2. posture and tone: 2. Qualitative amniotic fluid volume: 2. Total score: 8/8. IMPRESSION: biophysical profile: Total score: 8/8. This document is electronically signed by Vikas Dupont MD., January 25 2019 07:31:54 AM ET
[2019-01-25] MEDS: PRENATAL VITAMIN PO SCH (09:44)
[2019-01-25] MEDS: NORMODYNE PO SCH (09:44)
[2019-01-25] MEDS: MAGNESIUM SULFATE 40GM/1000ML 40 GM/1,000 ML BAG IV SCH (19:30)
--- NOTE | 2019-01-25 22:14 | Event Note ---
Date: 01/25/19 Cervidil was removed at 20:15. SVE 40/-2/cephalic. Patient states she is bryce every 5 minutes. Uterus palpates soft between contractions. FHR category 1. Low dose Pitocin orders put in for cervical ripening. Discussed with patient risks and benefits of Pitocin for cervical ripening and induction of labor. Patient consented to Pitocin for cervical ripening and induction of labor.
[2019-01-25] MEDS ORDERED: PITOCin/NS 30 UNIT/500ML 30 UNITS/500 ML BAG IV SCH (23:00)
[2019-01-26] MEDS: AMPICILLIN/NS 1 GM/50 ML 1 GM/50 ML BAG IV SCH ×5 (02:00→10:28)
[2019-01-26] MEDS: NORMODYNE PO SCH ×5 (03:30→22:22)
[2019-01-26] MEDS ORDERED: PITOCin/NS 30 UNIT/500ML 30 UNITS/500 ML BAG IV SCH (08:00)
[2019-01-26] MEDS: PRENATAL VITAMIN PO SCH ×2 (10:00→10:28)
--- NOTE | 2019-01-26 10:01 | Progress Note ---
Assessment and Plan - Patient Problems (1) 35 weeks gestation of Current Visit: Yes Status: Acute (2) Pre-eclampsia, severe, third trimester Current Visit: Yes Status: Acute Plan to address problem: - Asymptomatic - BPs stable - Completed steroid series for FLM - Continue magnesium sulfate therapy - currently @ 1 g/hr - Continue Labetalol 200mg PO BID - Continue strict I&O, DTRs, and routine magnesium level (3) Encounter for induction of labor Current Visit: Yes Status: Acute Plan to address problem: - On low-dose Pitocin for cervical ripening (started 12/29/18 @ 01:02, discontinued due to NR FHR and restarted @ 05:00) - After 12-hrs (5pm), will re-evaluate cervix and FMS. If no cervical change and FMS reactive, will discontinue Pitocin. - Patient may have a regular diet - Continue cervical ripening with Cervidil - Discussed plan of care with Dr. Pugh - Anticipate vaginal delivery Subjective - Subjective Date of service: 01/26/19 Principal diagnosis: IUP @ 35w4d; Pre-eclampsia w/severe features; IOL Interval history: see H&P, OB Progress Notes and Event Notes Patient reports: movement normal, contractions (mild), other ("I am hungry"), no loss of fluid, no vaginal bleeding Objective - Vital Signs Vital Signs: Vital Signs - 12hr 01/25/19 01/25/19 01/25/19 22:19 22:49 23:19 Temperature Pulse Rate 91 H 96 H 86 Blood Pressure 95/58 91/56 96/54 01/25/19 01/26/19 01/26/19 23:49 00:19 00:50 Temperature Pulse Rate 93 H 100 H 86 Blood Pressure 101/55 118/77 91/55 01/26/19 01/26/19 01/26/19 01:19 01:49 02:19 Temperature Pulse Rate 88 91 H 95 H Blood Pressure 143/88 139/85 144/79 01/26/19 01/26/19 01/26/19 02:49 03:20 03:30 Temperature Pulse Rate 82 91 H 79 Blood Pressure 137/80 153/89 147/90 01/26/19 01/26/19 01/26/19 03:47 03:49 07:15 Temperature 97.4 F L Pulse Rate 86 79 Blood Pressure 134/78 147/90 03/11/19 03/11/19 03/11/19 07:25 07:57 08:26 Temperature Pulse Rate 90 90 100 H Blood Pressure 129/80 136/76 132/78 01/26/19 01/26/19 01/26/19 08:56 09:26 09:56 Temperature Pulse Rate 89 90 91 H Blood Pressure 138/79 130/86 138/81 - Exam FHR: auscultation normal, category 2 FHR comments: baseline 150, minimal variability, + accels, no decels Uterine Contraction Monitor Mode: External Cervical Dilatation: 1 Cervical Effacement Percentage: 40 station: -2 Uterine Contraction Pattern: Irregular Extremities: other (SCD in place) - Labs Labs: Abnormal Labs 01/23/19 01/23/19 01/24/19 13:01 13:01 04:17 RDW 17.6 H Creatinine 0.5 L Magnesium 4.10 H Ur Total Protein 24 Hr Urine Total Protein 01/24/19 01/24/19 01/24/19 10:30 16:36 19:12 RDW Creatinine Magnesium 5.10 H 5.50 H Ur Total Protein 24 Hr 7350.00 H Urine Total Protein 105 H 01/24/19 01/25/19 01/25/19 21:33 07:47 15:00 RDW Creatinine Magnesium 5.60 H 6.00 H 4.80 H Ur Total Protein 24 Hr Urine Total Protein 01/25/19 01/26/19 01/26/19 19:34 01:13 08:40 RDW Creatinine Magnesium 4.60 H 4.50 H 4.40 H Ur Total Protein 24 Hr Urine Total Protein Laboratory Results - last 24 hr 01/25/19 01/25/19 01/26/19 15:00 19:34 01:13 Magnesium 4.80 H 4.60 H 4.50 H 01/26/19 08:40 Magnesium 4.40 H
[2019-01-26] MEDS: LACTATED RINGERS 1,000 ML IV SCH (23:39)
[2019-01-27] MEDS: NORMODYNE PO SCH ×2 (10:07→22:00)
[2019-01-27] MEDS: AMPICILLIN/NS 1 GM/50 ML 1 GM/50 ML BAG IV SCH (10:07)
--- NOTE | 2019-01-27 11:44 | Event Note ---
Patient reports good movement. Her BPs are 120-130/60-70s. She is on magnesium sulfate for seizure prophylaxis and on PO Labetolol. A discussion with patient regarding the progress of labor and maternal condition of preeclampsia with severe features was had. Due to the risks of preeclampsia and protracted progression of labor an elective section was requested. The risks, benefits and alternatives to csection was discussed and informed consent signed.
[2019-01-27] MEDS ORDERED: BICITRA PO SCH (11:46)
[2019-01-27] MEDS ORDERED: PEPCID IV SCH (11:46)
[2019-01-27] MEDS ORDERED: REGLAN IV SCH (11:46)
[2019-01-27] MEDS ORDERED: LACTATED RINGERS 1,000 ML IV SCH (12:00)
[2019-01-27] MEDS ORDERED: ANCEF/STERILE WATER 2 GM/20 ML 2 GM/20 ML SYRINGE IV NR (12:00)
[2019-01-27] MEDS ORDERED: PITOCin/NS 20 UNIT/1000ML DRIP 20 UNITS/1,000 ML BAG IV SCH ×2 (12:00→17:00)
[2019-01-27] MEDS ORDERED: SUBLIMAZE ONE (12:18)
[2019-01-27] MEDS ORDERED: ASTRAMORPH PF 10MG/10ML ONE (12:18)
[2019-01-27 12:42] LABS: Basophils % (Auto) 0.2 % (0.0-1.8); Eosinophils # (Auto) 0.1 K/mm3 (0.0-0.4); Eosinophils % (Auto) 1.5 % (0.0-4.3); Hematocrit 28.5 % (30.3-42.9); Hemoglobin 9.5 gm/dl (10.1-14.3); Lymphocytes # (Auto) 1.1 K/mm3 (1.2-5.4); Lymphocytes % (Auto) 12.2 % (13.4-35.0); Mean Corpuscular HGB Conc 34 % (30-34); Mean Corpuscular Volume 86 fl (79-97); Monocytes # (Auto) 0.8 K/mm3 (0.0-0.8); Monocytes % (Auto) 9.3 % (0.0-7.3); Platelet Count 347 K/mm3 (140-440); Red Blood Count 3.31 M/mm3 (3.65-5.03)
[2019-01-27] MEDS ORDERED: SODIUM CHLORIDE FLUSH SYRINGE 10 ML IV PRN (13:00)
[2019-01-27] MEDS ORDERED: fentaNYL-BUPIV 2 MCG/ML-0.125% 200 MCG/100 ML BAG EPIDURAL SCH (13:00)
[2019-01-27] MEDS ORDERED: ZOFRAN IV PRN (13:00)
[2019-01-27] MEDS ORDERED: NARCAN 0.4 MG/1 ML IV PRN ×2 (13:00→13:23)
[2019-01-27] MEDS ORDERED: PHENERGAN PO PRN (13:00)
[2019-01-27] MEDS ORDERED: PHENERGAN PR PRN (13:00)
--- NOTE | 2019-01-27 13:22 | Anesthesia Consultation ---
Anesthesia Consult and Med Hx - Airway Anesthetic Teeth Evaluation: Good ROM Head & Neck: Adequate Mental/Hyoid Distance: Adequate Mallampati Class: Class III Intubation Access Assessment: Possibly Difficult - Pulmonary Exam CTA: Yes - Cardiac Exam Cardiac Exam: RRR - Pre-Operative Health Status ASA Pre-Surgery Classification: ASA3 Proposed Anesthetic Plan: Spinal - Pulmonary Hx Smoking: No Hx Asthma: No Hx Respiratory Symptoms: No SOB: No COPD: No Home Oxygen Therapy: No Hx Pneumonia: No Hx Sleep Apnea: No - Cardiovascular System Hx Hypertension: Yes (PIH) Hx Coronary Artery Disease: No Hx Heart Attack/AMI: No Hx Angina: No Hx Percutaneous Transluminal Coronary Angioplasty (PTCA): No Hx Cardia Arrhythmia: No Hx Pacemaker: No Hx Internal Defibrillator: No Hx Valvular Heart Disease: No Hx Heart Murmur: No Hx Peripheral Vascular Disease: No - Central Nervous System Hx Neuromuscular Disorder: No Hx Seizures: No CVA: No Hx Back Pain: No Hx Psychiatric Problems: No - Gastrointestinal Hx Ulcer: No Hx Gastroesophageal Reflux Disease: No - Endocrine Hx Renal Disease: No Hx End Stage Renal Disease: No Hx Cirrhosis: No Hx Liver Disease: No Hx Insulin Dependent Diabetes: No Hx Non-Insulin Dependent Diabetes: No Hx Thyroid Disease: No Hx Hypothyroidism: No Hx Hyperthyroidism: No - Hematic Hx Anemia: No Hx Sickle Cell Disease: No - Other Systems Hx Alcohol Use: No Hx Substance Use: No Hx Cancer: No Hx Obesity: Yes
--- NOTE | 2019-01-27 13:23 | Anesthesia Day of Surgery ---
Anesthesia Day of Surgery - Day of Surgery Patient Examined: Yes Patient H&P Reviewed: Yes Patient is NPO: Yes Beta Blockers: No Cardiac Clearance: No Pulmonary Clearance: No Ramakrishna's Test: N/A
[2019-01-27] MEDS ORDERED: WATER FOR IRRIG STERILE IR ONE (13:53)
[2019-01-27] MEDS ORDERED: NACL 0.9% IR ONE (13:53)
[2019-01-27] MEDS ORDERED: SODIUM CHLORIDE FLUSH SYRINGE 10 ML IV NR (14:00)
[2019-01-27] MEDS ORDERED: TORADOL ONE (14:56)
[2019-01-27] MEDS: MAGNESIUM SULFATE 40GM/1000ML 40 GM/1,000 ML BAG IV SCH ×2 (16:41→18:12)
[2019-01-27] MEDS ORDERED: APRESOLINE IV PRN ×2 (16:56→18:05)
[2019-01-27] MEDS ORDERED: CALCIUM GLUCONATE IV ONE (16:56)
[2019-01-27] MEDS ORDERED: MYLICON PO PRN (17:00)
[2019-01-27] MEDS ORDERED: TUCKS PAD TP PRN (17:00)
[2019-01-27] MEDS ORDERED: MORPHINE IV PRN (17:00)
[2019-01-27] MEDS ORDERED: LANSINOH TP PRN (17:00)
[2019-01-27] MEDS ORDERED: MAGNESIUM SULFATE 40GM/1000ML 40 GM/1,000 ML BAG IV SCH (17:00)
--- NOTE | 2019-01-27 17:00 | Operative Report ---
Operative Report Operative Report: DATE OF OPERATION 01/27/19 PREOP Diagnosis 1. 35 5/7 weeks gestation 2. Failure to progress 3. Preeclampsia with severe features 4. Multiparity desires permanent sterilization Postop Diagnosis 1. 35 5/7 weeks gestation 2. Failure to progress 3. Preeclampsia with severe features 4. Multiparity desires permanent sterilization Procedure: 1. Primary section 2. Bilateral tubal ligation 3. Bilateral fimbriectomy Findings 1. Viable female infant in the vertex presentation, weighing 5lb 8oz, 2497g APGARS 8 at 1 min, 9 at 5 min 2. Normal uterus, bilateral ovaries and tubes Surgeon 1. Elle Pugh MD Anesthesia: 1. Epidural I/O: EBL: 800ml IVF [id number] LR UOP 250ml Specimens removed: 1. Placenta 2. Right fimbria and fallopian tube 3. Left fimbria and fallopian tube Complications: none Disposition: Patient taken to recovery room in stable condition INDICATIONS: The patient is a 28yo at 35 5/7weeks that was undergoing induction of labor for preeclampsia with severe features. After 3 days of induction with no significant cervical change and prophylaxis with magnesium sulfate, the mother requested an elective section. She also desired permanent sterilization and and signed consent at least 30 days prior to procedure. She reaffirmed on day of the procedure that she did not desire fertility. The risks including but not limited to bleeding, infections, injury to surrounding organs, potential injury to mother/infant, failure and risk of ectopic were discussed. All questions were answered and informed consent signed. PROCEDURE: The patient was taken to the OR in stable condition. Adequate anesthesia was achieved with epidural anesthesia. heart tones were confirmed in the OR. A galvin catheter was placed. She wore SCDs for DVT prophylaxis. And received Ancef for infection prophylaxis. The patient was prepped and draped in the usual fashion and an additional time out was done. A Pfannestiel incision was made in the skin and carried down to the fascia. The fascia was incised and the incision extended laterally. The superior and inferior aspect of the rectus muscle was dissected off of the fascia. Entry into the peritoneum was achieved and the incision was extended cranially and caudally. The vesicouterine fold was carefully dissected off the lower uterine segment. . A low-transverse incision made made in the uterus and extended laterally. membranes were ruptured . head was delivered and body delivered. was bulb suctioned, cord clamped x2 and handed off to awaiting picker tender staff. The placenta was delivered intact. 20 units of IV Pitocin was added to LR fluids. The uterus was cleaned of all clots. The hysterotomy was repaired with 0-Vicryl in a running, locked stitch and an imbricating layer of the same suture was used. The right fallopian tube was identified and traced down to to the fimbriated end. A segment of the isthmus approximately 3 cm from the cornua was grasped with Mikana and tube was ligated via the modified Marge method. The left fallopian tube was identified and traced down to to the fimbriated end. A segment of the isthmus approximately 3 cm from the cornua was grasped with Jan and tube was ligated via the modified [place] method. The left tube was noted to bleed and therefore the entire tube and fimbria were were clamped, cut and suture ligated. Before placing the uterus back in the pelvis the right tube was noted to bleed and therefore a complete salpingectomy and fimbrectomy was conducted on that tube as well. The rectus muscle was re-approximated with 2-0Vicryl. Fascia was closed with 0 Vicryl. The Subcutaneous layer reapproximated with 2-0 Vicryl. The skin was then closed with 4-0 Vicryl. The patient tolerated the procedure well. All counts were correct x 3. Urine was noted to be clear at close of case. I was present and scrubbed for the entire procedure. The patient was taken to the recovery room in stable condition.
--- NOTE | 2019-01-27 17:59 | Post Anesthesia Evaluation ---
- Post Anesthesia Evaluation Patient Participated: Yes Airway Patent: Yes Stable Respiratory Function: Yes Nausea/Vomiting: No Temp > 96.8F: Yes Pain Manageable: Yes Adequeate Hydration: Yes Anesthesia Complications: No Block Receding Appropriately: Yes Patient on Ventilator: No
[2019-01-27] MEDS ORDERED: XYLOCAINE 2%/ EPI 1:200,000 INFILTRATI ONE (21:04)
[2019-01-27] MEDS: PERCOCET 5/325 PO PRN (21:59)
[2019-01-28] MEDS: LACTATED RINGERS 1,000 ML IV SCH ×2 (04:25→12:35)
[2019-01-28] MEDS: PERCOCET 5/325 PO PRN ×3 (04:25→17:52)
[2019-01-28 08:26] LABS: Hematocrit 28.4 % (30.3-42.9); Hemoglobin 9.5 gm/dl (10.1-14.3)
--- NOTE | 2019-01-28 10:56 | Progress Note ---
Assessment and Plan A: POD #1 Preeclampsia P: Follow Routine PostOp Orders Continue MagSO4 until 24 hours postop Continue Labetolol as directed Subjective - Subjective Date of service: 01/28/19 Principal diagnosis: IUP @ 35w4d; Pre-eclampsia w/severe features; IOL Patient reports: appetite normal, voiding normally (galvin in place), pain well controlled, flatus, other (Denies HAs, visual changes, N&V) [place]: in NICU Objective - Vital Signs Latest vital signs: Vital Signs Temp Pulse Resp BP BP Pulse Ox 01/28/19 10:51 107 H 100 01/28/19 10:46 95 H 98 01/28/19 10:41 96 H 99 01/28/19 10:36 95 H 98 01/28/19 10:31 99 H 98 01/28/19 10:26 100 H 97 01/28/19 10:23 102 H 129/73 01/28/19 10:21 105 H 97 01/28/19 10:18 103 H 88 01/28/19 10:16 101 H 94 01/28/19 10:11 99 H 98 01/28/19 10:06 99 H 98 01/28/19 10:01 99 H 98 01/28/19 09:56 99 H 98 01/28/19 09:53 99 H 124/65 01/28/19 09:51 99 H 97 01/28/19 09:46 100 H 98 01/28/19 09:41 99 H 98 01/28/19 09:36 107 H 98 01/28/19 09:31 101 H 99 01/28/19 09:26 105 H 99 01/28/19 09:24 103 H 111/57 01/28/19 09:21 105 H 99 01/28/19 09:19 77 83 L 01/28/19 09:16 111 H 99 01/28/19 09:11 117 H 100 01/28/19 09:06 111 H 99 01/28/19 09:01 99 H 99 01/28/19 08:56 102 H 99 01/28/19 08:54 107 H 93 01/28/19 08:53 75 147/78 01/28/19 08:51 100 H 98 01/28/19 08:46 99 H 98 01/28/19 08:41 100 H 98 01/28/19 08:36 102 H 98 01/28/19 08:31 100 H 98 19 08:26 107 H 100 01/28/19 08:23 100 H 136/72 01/28/19 08:21 108 H 100 01/28/19 08:16 102 H 98 01/28/19 08:11 109 H 99 01/28/19 08:06 100 H 99 01/28/19 08:01 102 H 99 01/28/19 07:56 102 H 99 01/28/19 07:53 96 H 132/70 01/28/19 07:51 98 H 97 01/28/19 07:46 94 H 99 01/28/19 07:41 95 H 97 01/28/19 07:36 91 H 98 01/28/19 07:31 96 H 97 01/28/19 07:26 99 H 98 01/28/19 07:23 102 H 125/70 01/28/19 07:21 91 H 98 01/28/19 07:16 94 H 98 01/28/19 07:11 93 H 98 01/28/19 07:06 94 H 98 01/28/19 07:01 93 H 97 01/28/19 06:56 93 H 98 01/28/19 06:51 97 H 98 01/28/19 06:47 101 H 81 L 01/28/19 06:46 96 H 97 01/28/19 06:41 98 H 97 01/28/19 06:36 95 H 96 01/28/19 06:31 96 H 98 01/28/19 06:26 94 H 97 01/28/19 06:23 96 H 128/62 01/28/19 06:21 96 H 97 01/28/19 06:16 92 H 98 01/28/19 06:11 90 98 01/28/19 06:06 91 H 98 01/28/19 06:01 97 H 98 01/28/19 05:56 94 H 97 01/28/19 05:53 94 H 139/71 01/28/19 05:51 92 H 97 01/28/19 05:46 97 H 100 01/28/19 05:44 106 H 86 01/28/19 05:41 95 H 96 19 05:39 92 H 93 01/28/19 05:36 92 H 100 01/28/19 05:31 95 H 100 01/28/19 05:26 96 H 100 01/28/19 05:23 98 H 114/74 01/28/19 05:21 95 H 100 01/28/19 05:16 97 H 100 01/28/19 05:11 96 H 100 01/28/19 05:06 94 H 100 01/28/19 05:01 94 H 100 01/28/19 04:56 93 H 100 01/28/19 04:53 96 H 134/68 01/28/19 04:51 94 H 100 01/28/19 04:46 98 H 100 01/28/19 04:41 96 H 100 01/28/19 04:36 92 H 100 01/28/19 04:31 123 H 100 01/28/19 04:26 113 H 97 01/28/19 04:25 18 01/28/19 04:23 98 H 137/82 01/28/19 04:21 102 H 98 01/28/19 04:16 95 H 96 01/28/19 04:11 98 H 99 01/28/19 04:06 86 97 01/28/19 04:05 96 H 87 01/28/19 04:01 95 H 99 01/28/19 04:00 89 84 01/28/19 03:56 97 H 96 01/28/19 03:53 96 H 134/71 01/28/19 03:51 92 H 97 01/28/19 03:46 94 H 97 01/28/19 03:41 104 H 97 01/28/19 03:36 94 H 97 01/28/19 03:31 95 H 97 01/28/19 03:26 95 H 97 01/28/19 03:23 100 H 143/79 01/28/19 03:21 92 H 97 01/28/19 03:16 92 H 97 01/28/19 03:11 95 H 97 01/28/19 03:06 97 H 97 01/28/19 03:01 94 H 97 01/28/19 02:56 92 H 97 01/28/19 02:53 94 H 138/74 01/28/19 02:51 95 H 96 01/28/19 02:47 98 H 92 01/28/19 02:46 94 H 98 01/28/19 02:41 95 H 83 L 03/13/19 02:40 107 H 80 L 01/28/19 02:36 89 98 01/28/19 02:31 94 H 97 01/28/19 02:26 95 H 97 01/28/19 02:23 94 H 125/79 01/28/19 02:21 94 H 97 01/28/19 02:16 92 H 97 01/28/19 02:11 92 H 98 01/28/19 02:06 91 H 98 01/28/19 02:01 94 H 97 01/28/19 01:56 91 H 98 01/28/19 01:53 92 H 132/76 01/28/19 01:51 96 H 99 01/28/19 01:46 99 H 100 01/28/19 01:41 91 H 98 01/28/19 01:36 91 H 97 01/28/19 01:31 104 H 99 01/28/19 01:26 95 H 98 01/28/19 01:23 100 H 132/73 01/28/19 01:21 98 H 97 01/28/19 01:16 96 H 97 01/28/19 01:11 93 H 98 01/28/19 01:06 95 H 98 01/28/19 01:01 94 H 98 01/28/19 00:56 91 H 98 01/28/19 00:53 91 H 133/78 01/28/19 00:51 99 H 98 01/28/19 00:46 95 H 98 01/28/19 00:41 96 H 99 01/28/19 00:36 95 H 98 01/28/19 00:31 101 H 99 01/28/19 00:26 92 H 98 01/28/19 00:23 92 H 135/79 01/28/19 00:21 93 H 98 01/28/19 00:16 91 H 99 01/28/19 00:11 99 H 99 01/28/19 00:06 100 H 99 01/28/19 00:01 96 H 98 01/28/19 00:00 99 H 87 01/27/19 23:56 96 H 99 01/27/19 23:53 93 H 134/83 01/27/19 23:51 92 H 98 01/27/19 23:46 95 H 98 01/27/19 23:41 93 H 97 01/27/19 23:36 100 H 99 01/27/19 23:31 97 H 98 01/27/19 23:26 96 H 98 01/27/19 23:23 96 H 140/76 01/27/19 23:21 97 H 98 01/27/19 23:16 95 H 99 01/27/19 23:11 101 H 98 01/27/19 23:06 101 H 96 01/27/19 23:01 98 H 98 01/27/19 22:59 19 01/27/19 22:56 97 H 98 01/27/19 22:53 95 H 136/67 01/27/19 22:51 103 H 96 01/27/19 22:46 101 H 97 01/27/19 22:41 98 H 97 01/27/19 22:37 99 H 148/69 01/27/19 22:36 104 H 99 01/27/19 22:31 104 H 98 01/27/19 22:26 102 H 99 01/27/19 22:23 100 H 147/86 01/27/19 22:21 96 H 98 01/27/19 22:16 111 H 99 01/27/19 22:11 103 H 99 01/27/19 22:06 98 H 100 01/27/19 22:01 117 H 99 01/27/19 22:00 93 H 160/83 01/27/19 21:59 18 01/27/19 21:56 108 H 99 01/27/19 21:54 98 H 160/83 01/27/19 21:51 98 H 99 01/27/19 21:46 100 H 99 01/27/19 21:41 107 H 99 01/27/19 21:36 102 H 99 01/27/19 21:31 100 H 99 01/27/19 21:26 112 H 99 01/27/19 21:24 99 H 169/85 01/27/19 21:21 98 H 99 01/27/19 21:16 104 H 98 01/27/19 21:11 103 H 99 01/27/19 21:06 101 H 99 01/27/19 21:01 105 H 100 01/27/19 20:56 101 H 99 01/27/19 20:54 97 H 189/82 01/27/19 20:51 102 H 98 01/27/19 20:46 98 H 97 01/27/19 20:41 110 H 100 01/27/19 20:36 100 H 98 01/27/19 20:31 106 H 99 01/27/19 20:30 98.7 F 95 H 18 143/87 99 01/27/19 20:23 95 H 143/87 01/27/19 20:08 96 H 135/82 01/27/19 19:53 96 H 144/86 01/27/19 19:38 88 144/83 01/27/19 19:23 102 H 143/83 01/27/19 19:08 94 H 148/84 01/27/19 18:53 93 H 144/85 01/27/19 18:38 93 H 153/98 01/27/19 18:23 94 H 151/74 01/27/19 18:08 84 167/95 01/27/19 17:53 87 171/94 01/27/19 17:45 98.4 F 14 01/27/19 17:38 90 167/93 01/27/19 17:23 81 159/91 01/27/19 16:56 80 14 154/99 99 01/27/19 16:45 98 F 78 12 156/96 99 01/27/19 16:30 97.8 F 84 14 153/100 99 01/27/19 16:05 97.8 F 80 12 145/95 99 01/27/19 16:00 97.6 F 81 12 143/95 95 01/27/19 15:55 97.6 F 82 12 131/86 100 01/27/19 12:49 91 H 142/68 01/27/19 11:49 99 H 127/69 Intake and Output 01/27/19 01/28/19 01/28/19 22:59 06:59 14:59 Intake Total 137.917 Output Total 650 1200 Balance -512.083 -1200 Intake: IV 137.917 MAGNESIUM SULFATE 40GM/ 37.917 1000ML 40 gm In 1,000 ml @ 1 GM/HR 25 mls/hr IV DIRECT DONALDO Rx#:[id number] Output: Urine 650 1200 Indwelling Catheter 300 1200 Other: Total, Output Amount 300 700 - Exam Breasts: Present: normal Cardiovascular: Present: Regular rate Lungs: Present: Clear to auscultation, Normal air movement Abdomen: Present: normal appearance, soft, normal bowel sounds Uterus: Present: normal, firm, fundal height below umbilicus Extremities: Present: normal Incision: Present: dry, dressed - Labs Labs: Abnormal lab results 01/27/19 01/28/19 01/28/19 Range/Units 12:12 00:15 06:52 RBC 3.31 L (3.65-5.03) M/mm3 Hgb 9.5 L 9.5 L (10.1-14.3) gm/dl Hct 28.5 L 28.4 L (30.3-42.9) % RDW 18.0 H (13.2-15.2) % Lymph % (Auto) 12.2 L (13.4-35.0) % [place] % (Auto) 9.3 H (0.0-7.3) % Lymph # 1.1 L (1.2-5.4) K/mm3 Seg Neutrophils % 76.8 H (40.0-70.0) % Magnesium 3.90 H (1.7-2.3) mg/dL 01/28/19 Range/Units 06:52 RBC (3.65-5.03) M/mm3 Hgb (10.1-14.3) gm/dl Hct (30.3-42.9) % RDW (13.2-15.2) % Lymph % (Auto) (13.4-35.0) % [place] % (Auto) (0.0-7.3) % Lymph # (1.2-5.4) K/mm3 Seg Neutrophils % (40.0-70.0) % Magnesium 4.00 H (1.7-2.3) mg/dL
[2019-01-28] MEDS: PRENATAL VITAMIN PO SCH (11:04)
[2019-01-28] MEDS: FEOSOL PO SCH (11:04)
[2019-01-28] MEDS: NORMODYNE PO SCH ×2 (11:04→21:31)
[2019-01-28] MEDS: IBUPROFEN PO PRN (21:32)
[2019-01-29] MEDS: PERCOCET 5/325 PO PRN ×4 (01:50→23:54)
[2019-01-29] MEDS: NORMODYNE PO SCH ×2 (09:52→21:23)
[2019-01-29] MEDS: PRENATAL VITAMIN PO SCH (09:52)
[2019-01-29] MEDS: FEOSOL PO SCH (09:52)
[2019-01-29] MEDS: IBUPROFEN PO PRN ×3 (09:53→23:53)
--- NOTE | 2019-01-29 10:42 | Progress Note ---
Assessment and Plan A: POD #2 s/p Pc/s Preeclampsia; s/p MgSo4 Pain well controlled VSS: 110-130s/60-80s Labetalol 200mg BID Infant in NICU d/t prematurity Stable P: Follow Routine PostOp Orders Continue Labetalol as directed Encouraged ambulation in room Discharge home 01/30/19 Incision and B/P check in office in 1 week Subjective - Subjective Date of service: 01/29/19 Principal diagnosis: POD#2 s/p Primary C/S @ 35w4d; Pre-eclampsia w/severe features post MgS04 Patient reports: appetite normal, voiding normally, pain well controlled, flatus, ambulating normally, no bowel movement : in NICU (Prematurity), bottle feeding Objective - Vital Signs Latest vital signs: Vital Signs Temp Pulse Resp BP BP Pulse Ox 01/29/19 09:52 107 H 136/62 01/29/19 09:07 98.6 F 109 H 18 139/82 98 01/29/19 01:00 98.2 F 113 H 113/68 01/28/19 21:31 98.5 F 111 H 18 136/84 99 01/28/19 18:22 98.7 F 109 H 20 147/88 99 01/28/19 17:31 107 H 97 01/28/19 17:26 99 H 99 01/28/19 17:21 103 H 98 01/28/19 17:16 98 H 100 01/28/19 17:11 99 H 100 01/28/19 17:06 105 H 99 01/28/19 17:01 110 H 98 01/28/19 16:56 102 H 99 01/28/19 16:51 102 H 98 01/28/19 16:46 107 H 99 01/28/19 16:41 106 H 99 01/28/19 16:36 97 H 98 01/28/19 16:31 103 H 98 01/28/19 16:26 99 H 99 01/28/19 16:23 104 H 141/78 01/28/19 16:21 101 H 98 01/28/19 16:16 98 H 98 01/28/19 16:11 96 H 99 01/28/19 16:06 103 H 97 01/28/19 16:01 98 H 98 01/28/19 15:56 103 H 99 01/28/19 15:53 100 H 132/72 03//19 15:51 104 H 99 03//19 15:46 102 H 99 03/ 15:45 98.6 F 20 01/28/19 15:41 106 H 99 03/ 15:36 100 H 98 03/19 15:31 103 H 99 03/ 15:26 116 H 97 03/ 15:23 102 H 131/76 03/19 15:21 100 H 98 03/19 15:16 99 H 99 03/19 15:11 99 H 98 03/ 15:06 100 H 98 03/ 15:01 99 H 98 03/ 14:56 104 H 97 01/28/19 14:53 100 H 127/69 01/28/19 14:51 104 H 99 01/28/19 14:46 102 H 99 03/ 14:41 103 H 99 01/28/19 14:36 98 H 99 03/ 14:31 100 H 100 03 14:26 114 H 99 03 14:23 100 H 134/73 03/ 14:21 104 H 98 03/19 14:16 106 H 100 01/28/19 14:11 100 H 99 03 14:06 95 H 99 03 14:01 97 H 99 03 13:56 98 H 99 03 13:53 97 H 138/83 0319 13:51 97 H 98 03/19 13:46 98 H 98 03/19 13:41 104 H 100 03/19 13:39 96 H 75 L 03 13:36 97 H 99 03//19 13:31 89 94 03/1319 13:26 92 H 98 03/1319 13:23 93 H 122/72 03//19 13:21 88 98 03/13/19 13:16 90 98 03/1319 13:11 93 H 98 03//19 13:06 90 98 03/13/19 13:01 90 99 03/13/19 12:56 90 98 03/13/19 12:55 86 91 03//19 12:53 92 H 117/66 01/28/19 12:51 96 H 89 01/28/19 12:48 92 H 84 01/28/19 12:46 98 H 95 01/28/19 12:41 90 97 01/28/19 12:36 92 H 97 01/28/19 12:31 90 98 01/28/19 12:26 89 97 01/28/19 12:23 91 H 129/66 01/28/19 12:21 92 H 97 01/28/19 12:16 101 H 100 01/28/19 12:11 92 H 98 01/28/19 12:06 93 H 95 01/28/19 12:01 99 H 98 01/28/19 11:56 98 H 98 01/28/19 11:53 93 H 125/61 01/28/19 11:51 99 H 98 01/28/19 11:46 95 H 97 01/28/19 11:41 95 H 98 01/28/19 11:36 98 H 98 01/28/19 11:31 96 H 98 01/28/19 11:26 104 H 97 01/28/19 11:21 101 H 99 01/28/19 11:16 109 H 98 01/28/19 11:11 111 H 98 01/28/19 11:06 106 H 99 01/28/19 11:04 98 H 134/90 01/28/19 11:01 100 H 99 01/28/19 10:56 102 H 99 01/28/19 10:53 101 H 134/90 01/28/19 10:51 107 H 100 01/28/19 10:46 95 H 98 01/28/19 10:41 96 H 99 Intake and Output 01/28/19 01/29/19 01/29/19 23:59 07:59 15:59 Intake Total 570 240 Output Total 1600 600 Balance -1030 -600 240 Intake: IV 570 MAGNESIUM SULFATE 40GM/ 570 1000ML 40 gm In 1,000 ml @ 1 GM/HR 25 mls/hr IV DIRECT DONALDO Rx#:[id number] Intake, Free Water 240 Output: Urine 1600 600 Indwelling Catheter 1000 Void 600 600 Other: Total, Output Amount 600 600 # Voids Void 2 1 - Exam Breasts: Present: normal Cardiovascular: Present: Regular rate, Normal S1, Normal S2, No murmurs Lungs: Present: Clear to auscultation, Normal air movement Abdomen: Present: normal appearance, soft, tenderness (as expected post-op). Absent: distention Vulva: both: normal Uterus: Present: firm, fundal height at umbilicus Extremities: Present: edema (1+) Deep Tendon Reflex Grade: Normal +2 Incision: Present: normal (LTI, closed with SQ sutures and steri strips CDI, no drainage), dry, intact - Labs Labs: Abnormal lab results 01/28/19 Range/Units 16:45 Magnesium 3.70 H (1.7-2.3) mg/dL
--- NOTE | 2019-01-29 10:46 | Discharge Summary ---
< - Last Filed: 01/29/19 10:42> Providers - Providers Date of Admission: 01/23/19 12:12 Date of discharge: 01/30/19 Attending physician: NEGIN PLUNKETT 01/24/19 12:08 Consult to Physician [CONS] Routine Comment: Consulting Provider: GAEL LE Physician Instructions: Reason For Exam: IUP @ 35 weeks; Preeclampsia Primary care physician: VITO RAMOS MD Hospitalization Reason for admission: IUP - , other (Preeclampsia with severe features) Delivery: Procedure: primary low transverse Procedure details: See H&P and operative note Incision: normal (LTI, closed with SQ sutures and steri strips, CDI, no drainage), dry, intact complications: none, other (MgS04 ) Discharge diagnosis: delivery (35+ weeks) Condition at discharge: Good Disposition: DC-01 TO HOME OR SELFCARE Plan - Discharge Medications Prescriptions: Ferrous Sulfate [Feosol 325 MG tab] 325 mg PO BID 30 Days #60 tablet Ibuprofen 800 mg PO Q6H PRN 10 Days #30 tablet MDD 3200mg PRN Reason: Pain, Moderate (4-6) oxyCODONE /ACETAMINOPHEN [Percocet 5/325] 1 tab PO Q4HR PRN 14 Days #30 tab PRN Reason: Pain , Severe (7-10) - Provider Discharge Summary Activity: routine, no sex for 6 weeks, no heavy lifting 4 weeks, no strenuous exercise Diet: routine Instructions: routine Additional instructions: [] Smoking cessation referral if applicable(refer to patient education folder for contact #) [] Refer to [facility] Booklet Call your doctor immediately for: * Fever > 100.5 * Heavy vaginal bleeding ( >1 pad per hour) * Severe persistent headache * Shortness of breath * Reddened, hot, painful area to leg or breast * Drainage or odor from incision. * Keep incision clean and dry at all times and follow doctor's instructions regarding bathing/showering Continue antihypertensive Labetalol 200mg PO BID. Will send prescription to Pharmacy for brass pickler. - Follow up plan Follow up: VITO RAMOS MD [Primary Care Provider] - 7 Days Forms: [facility] Discharge Summary <NEGIN PLUNKETT - Last Filed: 01/31/19 14:05> Providers - Providers Date of Admission: 01/23/19 12:12 Attending physician: NEGIN PLUNKETT 01/24/19 12:08 Consult to Physician [CONS] Routine Comment: Consulting Provider: GAEL LE Physician Instructions: Reason For Exam: IUP @ 35 weeks; Preeclampsia Primary care physician: VITO RAMOS MD Hospitalization Pertinent studies: Laboratory Tests 01/23/19 01/23/19 01/23/19 12:59 13:01 13:01 WBC 10.8 RBC 3.87 Hgb 11.3 Hct 33.3 MCV 86 MCH 29 MCHC 34 RDW 17.6 H Plt Count 361 Lymph % (Auto) [place] % (Auto) Eos % (Auto) Baso % (Auto) Lymph # [place] # Eos # Baso # Seg Neutrophils % Seg Neutrophils # Creatinine 0.5 L Estimated GFR > 60 Uric Acid 7.0 Magnesium AST 16 ALT 11 Urine Color Urine Turbidity Urine pH Ur Specific [place] Urine Protein Urine Glucose (UA) Urine Ketones Urine Blood Urine Nitrite Urine Bilirubin Urine Urobilinogen Ur Leukocyte Esterase Urine WBC (Auto) Urine RBC (Auto) U Epithel Cells (Auto) Urine Bacteria (Auto) Urine Total Volume Ur Total Protein 24 Hr Urine Total Protein Blood Type O POSITIVE Antibody Screen Negative 01/23/19 01/24/19 01/24/19 Unknown 04:17 10:30 WBC RBC Hgb Hct MCV MCH MCHC RDW Plt Count Lymph % (Auto) [place] % (Auto) Eos % (Auto) Baso % (Auto) Lymph # [place] # Eos # Baso # Seg Neutrophils % Seg Neutrophils # Creatinine Estimated GFR Uric Acid Magnesium 4.10 H 5.10 H AST ALT Urine Color Straw Urine Turbidity Slightly-cloudy Urine pH 6.0 Ur Specific [place] 1.003 Urine Protein 100 mg/dl Urine Glucose (UA) Neg Urine Ketones Neg Urine Blood Neg Urine Nitrite Neg Urine Bilirubin Neg Urine Urobilinogen < 2.0 Ur Leukocyte Esterase Neg Urine WBC (Auto) 1.0 Urine RBC (Auto) 1.0 U Epithel Cells (Auto) 2.0 Urine Bacteria (Auto) 1+ Urine Total Volume Ur Total Protein 24 Hr Urine Total Protein Blood Type Antibody Screen 01/24/19 01/24/19 01/24/19 16:36 19:12 21:33 WBC RBC Hgb Hct MCV MCH MCHC RDW Plt Count Lymph % (Auto) [place] % (Auto) Eos % (Auto) Baso % (Auto) Lymph # [place] # Eos # Baso # Seg Neutrophils % Seg Neutrophils # Creatinine Estimated GFR Uric Acid Magnesium 5.50 H 5.60 H AST ALT Urine Color Urine Turbidity Urine pH Ur Specific [place] Urine Protein Urine Glucose (UA) Urine Ketones Urine Blood Urine Nitrite Urine Bilirubin Urine Urobilinogen Ur Leukocyte Esterase Urine WBC (Auto) Urine RBC (Auto) U Epithel Cells (Auto) Urine Bacteria (Auto) Urine Total Volume 7000 Ur Total Protein 24 Hr 7350.00 H Urine Total Protein 105 H Blood Type Antibody Screen 01/25/19 01/25/19 01/25/19 07:47 15:00 19:34 WBC RBC Hgb Hct MCV MCH MCHC RDW Plt Count Lymph % (Auto) [place] % (Auto) Eos % (Auto) Baso % (Auto) Lymph # [place] # Eos # Baso # Seg Neutrophils % Seg Neutrophils # Creatinine Estimated GFR Uric Acid Magnesium 6.00 H 4.80 H 4.60 H AST ALT Urine Color Urine Turbidity Urine pH Ur Specific [place] Urine Protein Urine Glucose (UA) Urine Ketones Urine Blood Urine Nitrite Urine Bilirubin Urine Urobilinogen Ur Leukocyte Esterase Urine WBC (Auto) Urine RBC (Auto) U Epithel Cells (Auto) Urine Bacteria (Auto) Urine Total Volume Ur Total Protein 24 Hr Urine Total Protein Blood Type Antibody Screen 01/26/19 01/26/19 01/26/19 01:13 08:40 14:45 WBC RBC Hgb Hct MCV MCH MCHC RDW Plt Count Lymph % (Auto) [place] % (Auto) Eos % (Auto) Baso % (Auto) Lymph # [place] # Eos # Baso # Seg Neutrophils % Seg Neutrophils # Creatinine Estimated GFR Uric Acid Magnesium 4.50 H 4.40 H 4.40 H AST ALT Urine Color Urine Turbidity Urine pH Ur Specific [place] Urine Protein Urine Glucose (UA) Urine Ketones Urine Blood Urine Nitrite Urine Bilirubin Urine Urobilinogen Ur Leukocyte Esterase Urine WBC (Auto) Urine RBC (Auto) U Epithel Cells (Auto) Urine Bacteria (Auto) Urine Total Volume Ur Total Protein 24 Hr Urine Total Protein Blood Type Antibody Screen 01/27/19 01/27/19 01/28/19 12:12 12:12 00:15 WBC 8.7 RBC 3.31 L Hgb 9.5 L Hct 28.5 L MCV 86 MCH 29 MCHC 34 RDW 18.0 H Plt Count 347 Lymph % (Auto) 12.2 L [place] % (Auto) 9.3 H Eos % (Auto) 1.5 Baso % (Auto) 0.2 Lymph # 1.1 L [place] # 0.8 Eos # 0.1 Baso # 0.0 Seg Neutrophils % 76.8 H Seg Neutrophils # 6.7 Creatinine Estimated GFR Uric Acid Magnesium 3.90 H AST ALT Urine Color Urine Turbidity Urine pH Ur Specific [place] Urine Protein Urine Glucose (UA) Urine Ketones Urine Blood Urine Nitrite Urine Bilirubin Urine Urobilinogen Ur Leukocyte Esterase Urine WBC (Auto) Urine RBC (Auto) U Epithel Cells (Auto) Urine Bacteria (Auto) Urine Total Volume Ur Total Protein 24 Hr Urine Total Protein Blood Type O POSITIVE Antibody Screen Negative 01/28/19 01/28/19 01/28/19 06:52 06:52 16:45 WBC RBC Hgb 9.5 L Hct 28.4 L MCV MCH MCHC RDW Plt Count Lymph % (Auto) [place] % (Auto) Eos % (Auto) Baso % (Auto) Lymph # [place] # Eos # Baso # Seg Neutrophils % Seg Neutrophils # Creatinine Estimated GFR Uric Acid Magnesium 4.00 H 3.70 H AST ALT Urine Color Urine Turbidity Urine pH Ur Specific [place] Urine Protein Urine Glucose (UA) Urine Ketones Urine Blood Urine Nitrite Urine Bilirubin Urine Urobilinogen Ur Leukocyte Esterase Urine WBC (Auto) Urine RBC (Auto) U Epithel Cells (Auto) Urine Bacteria (Auto) Urine Total Volume Ur Total Protein 24 Hr Urine Total Protein Blood Type Antibody Screen - Discharge Diagnoses (1) Anemia due to acute blood loss Status: Acute Comment: Asymptomatic. Discharge home on supplemental iron therapy. (2) 35 weeks gestation of Status: Acute (3) Pre-eclampsia, severe, third trimester Status: Acute Plan - Provider Discharge Summary Additional instructions: [] Smoking cessation referral if applicable(refer to patient education folder for contact #) [] Refer to [facility] Booklet Call your doctor immediately for: * Fever > 100.5 * Heavy vaginal bleeding ( >1 pad per hour) * Severe persistent headache * Shortness of breath * Reddened, hot, painful area to leg or breast * Drainage or odor from incision. * Keep incision clean and dry at all times and follow doctor's instructions regarding bathing/showering
[2019-01-29] MEDS ORDERED: M-M-R II VACCINE SUB-Q ONE (12:00)
[2019-01-29] MEDS ORDERED: MILK OF MAGNESIA PO PRN (17:00)
[2019-01-30] MEDS: PERCOCET 5/325 PO PRN ×2 (05:53→16:29)
[2019-01-30] MEDS: IBUPROFEN PO PRN ×2 (05:53→16:27)
[2019-01-30] MEDS: PRENATAL VITAMIN PO SCH ×2 (11:16→11:22)
[2019-01-30] MEDS: NORMODYNE PO SCH (11:21)
[2019-01-30] MEDS: FEOSOL PO SCH (11:22)
[2019-01-30] MEDS ORDERED: M-M-R II VACCINE SUB-Q ONE (19:42)
[2019-01-30 21:21] VITALS: BP 130/76
== END 2019-01-30 22:35 | disposition home or self-care (01) | DRG 765 ==
LOC: LD 12:12 → OB 01-28 19:26 → UNDODISIN 01-29 17:10
PROVIDERS: ADMIT Obstetrics & Gynecology; ATTEND Obstetrics & Gynecology
PROC: 3E0P7VZ Introduction of Hormone into Female Reproductive, Via Natural or Artificial Opening (ICD-10-PCS; 2019-01-25)
PROC: 10D00Z1 Extraction of Products of Conception, Low, Open Approach (ICD-10-PCS; principal; 2019-01-27)
PROC: 0UB70ZZ Excision of Bilateral Fallopian Tubes, Open Approach (ICD-10-PCS; 2019-01-27)
DX: O14.14 Severe pre-eclampsia complicating childbirth (principal); D62 Acute posthemorrhagic anemia; O41.03X0 Oligohydramnios, third trimester, not applicable or unspecified; O13.4 Gestational [pregnancy-induced] hypertension without significant proteinuria, complicating childbirth; Z3A.35 35 weeks gestation of pregnancy; Z37.0 Single live birth; E66.9 Obesity, unspecified; O99.214 Obesity complicating childbirth; O99.334 Smoking (tobacco) complicating childbirth; F17.210 Nicotine dependence, cigarettes, uncomplicated; O99.314 Alcohol use complicating childbirth; O42.913 Preterm premature rupture of membranes, unspecified as to length of time between rupture and onset of labor, third trimester; O99.02 Anemia complicating childbirth; O61.9 Failed induction of labor, unspecified; O76 Abnormality in fetal heart rate and rhythm complicating labor and delivery
CPT/HCPCS: 36415; 59025; 76815; 76819; 81001; 82565; 83735; 84156; 84450; 84460; 84550; 85014; 85018; 85025; 85027; 86850; 86900; 86901; 88302; 88307; G0378; J0290; J0360; J0690; J0702; J1100; J1885; J2274; J2590; J2765; J3010; J3475; J7120